=== PATIENT | male | born 1950 | race Hispanic/Latino ===

== ENCOUNTER → 2022-11-19 | Outpatient (CLI) | payer OTHER, MEDICARE ==
[2022-11-19 16:40] LABS: T4 (THYROXINE) 8.4 ug/dL (4.7-13.3); THYROID STIMULATING HORMONE 1.37 uIU/mL (0.36-3.74)
== END | disposition home or self-care (01) ==
LOC: LAB 11:40
PROVIDERS: ATTEND Internal Medicine Cardiovascular Disease
DX: E78.5 Hyperlipidemia, unspecified (principal); R00.1 Bradycardia, unspecified
CPT/HCPCS: 36415; 80061; 84436; 84443